=== PATIENT | female | born 1995 | race Two or more races ===

== ENCOUNTER 2024-07-18 09:17 | Emergency (ER) | payer MEDICARE ==
[~2024-07-18] VITALS: Ht 160 cm; Wt 101.7 kg
[2024-07-18] MEDS ORDERED: cefTRIAXone 1GM/50ML D5W 50 ML IV ONE (10:00)
[2024-07-18 10:12] LABS: Urine Bacteria FEW /hpf (None Seen); Urine Blood Negative /uL (Negative); Urine Clarity Turbid (Clear); Urine Color Light-Yellow (Yellow); Urine Protein, UAD TRACE (Negative); Urine Specific Gravity 1.018 (1.001-1.035); Urine Urobilinogen Normal (Negative); Urine WBC 14 /hpf (0 - 5)
[2024-07-18 10:14] LABS: Vaginal Bacteria Moderate; Vaginal Clue Cells None Seen; Vaginal Epithelial Cells Moderate; Vaginal Trichomonas Not Present
[2024-07-18 10:16] VITALS: BP 129/67; PULSE 85; RESP 18; TEMP 98.1; O2SAT 96
[2024-07-18] MEDS ORDERED: METR-344 PO (10:22)
[2024-07-18] MEDS ORDERED: BACDST PO (10:22)
== END 2024-07-18 10:28 | disposition home or self-care (01) ==
LOC: ER 09:17
DX: N76.0 Acute vaginitis (principal); N39.0 Urinary tract infection, site not specified; B96.89 Other specified bacterial agents as the cause of diseases classified elsewhere; E11.9 Type 2 diabetes mellitus without complications; Z88.2 Allergy status to sulfonamides; Z88.1 Allergy status to other antibiotic agents; Z32.02 Encounter for pregnancy test, result negative
CPT/HCPCS: 81001; 81025; 87210